=== PATIENT | female | born 1975 | race Two or more races ===

== ENCOUNTER 2017-01-01 18:31 | Emergency (ER) | payer BC ==
[~2017-01-01] VITALS: Ht 162.6 cm; Wt 63.5 kg
[2017-01-01 18:43] VITALS: BP 124/79
[2017-01-01] MEDS ORDERED: LORazepam Inj 2mg/ml 1ml IV ONE (19:00)
--- NOTE | 2017-01-01 19:04 | Emergency Room Report ---
History of Present Illness General Chief Complaint: General Complaint Source: Patient, Family Member Present Illness HPI Patient presents with left-sided weakness. It started approximately one hour prior to coming to the emergency department. She has any chest pain or palpitations or headache. She feels also tingling in her extremities. This began with tingling in her left knee. The patient has been in her care undergoing intravenous stress at this time with her kids. Return to commodes from [place] tarsitis down to decompression distress. The patient's had heart attacks in the past. She's also on Wellbutrin and Topamax with a history of psychiatric problems. She denies suicidality or depression she does feel quite anxious and crazy at this time. She also occasionally takes clonazepam. She states that the symptoms are waxing and waning. Sometimes she is able to move and at times not. She feels like her eyes are crossing. It is causing her to get greater stress. She states her last period ended last week. She denies any rash, vomiting nausea, diarrhea or dysuria. Apparently running out of Topamax and reduced dose - travelling. Allergies: Coded Allergies: [place] (Verified Allergy, Unknown, 01/01/17) Uncoded Allergies: SULFA (Allergy, Unknown, 01/01/17) Patient History Past Medical History: see triage record Social History: Denies: alcohol use, drug use Social History Narrative Reviewed Nursing Documentation: PMH: Agreed, PSxH: Agreed Nursing Documentation-PM Past Medical History: No History, Except For Hx Cardiac Problems: Yes - [place] Hx Hypertension: Yes History Of Psychiatric Problem: Yes - Anxiety, depresssion Review of Systems All Other Systems: negative except mentioned in HPI Physical Exam Vital Signs Date Time Temp Pulse Resp B/P Pulse Ox O2 Delivery O2 Flow Rate FiO2 01/01/17 18:18 98.4 84 16 124/79 99 Room Air Sp02 EP Interpretation: reviewed, normal General Appearance: well appearing, GCS 15, mild distress Head: normocephalic Eyes: bilateral eye EOMI, bilateral eye PERRL, bilateral eye normal inspection ENT: moist mucus membranes Neck: supple Respiratory: lungs clear, normal breath sounds Cardiovascular #1: regular rate, rhythm Cardiovascular #2: 2+ radial (R) Gastrointestinal: normal inspection, normal bowel sounds, non tender, no mass, non-distended Musculoskeletal: back normal, gait/station normal, normal range of motion Neurologic: alert, oriented x3, sensory intact, speech normal, motor weakness - variable, LE Psychiatric: anxious Skin: normal inspection, warm/dry Medical Decision Making Diagnostic Impression: Primary Impression: Transient left leg weakness Additional Impressions: Acute hyperventilation syndrome Medication reaction Qualified Codes: T88.7XXA - Unspecified adverse effect of drug or medicament, initial encounter Stress ER Course Patient presents with left-sided weakness and tingling associated with stress as waxing and waning. Differential includes acute hyperventilation, electrolyte abnormality, psychotic break, withdrawal, anxiety, dehydration amongst others. Evaluation with EKG, labs. CT not indicated as waxing and waning exam. Will treat with IV hydration and ativan. She will have cardiac monitoring. Labs unremarkable. EKG and CXR normal. After ativen and IV hydration, patient improved and ambulatory. Discussed findings. Patient stable for outpatient observation and treatment. Laboratory Tests Test 01/01/17 19:00 01/01/17 19:45 White Blood Count 5.5 K/UL (4.8-10.8) Red Blood Count 4.06 M/UL (4.20-5.40) L Hemoglobin 11.5 G/DL (12.0-16.0) L Hematocrit 35.7 % (37.0-47.0) L Mean Corpuscular Volume 88 FL (80-99) Mean Corpuscular Hemoglobin 28.2 PG (27.0-31.0) Mean Corpuscular Hemoglobin Concent 32.1 G/DL (32.0-36.0) Red Cell Distribution Width 13.0 % (11.6-14.8) Platelet Count 242 K/UL (150-450) Mean Platelet Volume 7.9 FL (6.5-10.1) Neutrophils (%) (Auto) 63.6 % (45.0-75.0) Lymphocytes (%) (Auto) 24.9 % (20.0-45.0) Monocytes (%) (Auto) 7.7 % (1.0-10.0) Eosinophils (%) (Auto) 1.8 % (0.0-3.0) Basophils (%) (Auto) 2.0 % (0.0-2.0) Sodium Level 136 mEQ/L (135-145) Potassium Level 4.0 mEQ/L (3.4-4.9) Chloride Level 99 mEQ/L (98-107) Carbon Dioxide Level 20 mEQ/L (20-30) Anion Gap 17 (5-15) H Blood Urea Nitrogen 17 mg/dL (7-23) Creatinine 0.9 mg/dL (0.5-0.9) Estimate Glomerular Filtration Rate > 60 mL/min (>60) Glucose Level 90 mg/dL (74-106) Calcium Level 8.7 mg/dL (8.6-10.2) Total Bilirubin 0.4 mg/dL (0.0-1.2) Aspartate Amino Transferase (AST) 17 U/L (5-40) Alanine Aminotransferase (ALT) 12 U/L (3-33) Alkaline Phosphatase 40 U/L (35-104) Total Creatine Kinase 96 U/L (26-140) Troponin I < 0.30 ng/mL (<=0.30) Total Protein 6.9 g/dL (6.6-8.7) Albumin 4.1 g/dL (3.5-5.2) Globulin 2.8 g/dL Albumin/Globulin Ratio 1.4 (1.0-2.7) Salicylates Level < 1 mg/dL (10-30) L Acetaminophen Level < 10 ug/mL (10-30) L Serum Alcohol < 10 mg/dL Urine Color Pale yellow Urine Appearance Clear Urine pH 6 (4.5-8.0) Urine Specific [place] 1.015 (1.005-1.035) Urine Protein Negative (NEGATIVE) Urine Glucose (UA) Negative (NEGATIVE) Urine Ketones Negative (NEGATIVE) Urine Occult Blood 1+ (NEGATIVE) H Urine Nitrite Negative (NEGATIVE) Urine Bilirubin Negative (NEGATIVE) Urine Urobilinogen Normal MG/DL (0.0-1.0) Urine Leukocyte Esterase Negative (NEGATIVE) Urine RBC 2-4 /HPF (0 - 2) H Urine WBC 0-2 /HPF (0 - 2) Urine Squamous Epithelial Cells Few /LPF (NONE/OCC) Urine Bacteria Few /HPF (NONE) Urine Mucus Few /LPF (NONE/OCC) H Urine HCG, Qualitative Negative Urine Opiates Screen Negative (NEGATIVE) Urine Barbiturates Screen Negative (NEGATIVE) Phencyclidine (PCP) Screen Negative (NEGATIVE) Urine Amphetamines Screen Negative (NEGATIVE) Urine Benzodiazepines Screen Negative (NEGATIVE) Urine Cocaine Screen Negative (NEGATIVE) Urine Marijuana (THC) Screen Negative (NEGATIVE) EKG Diagnostic Results Rate: normal Rhythm: NSR ST Segments: no acute changes Rhythm Strip Diag. Results EP Interpretation: yes Rhythm: NSR, no PVC's, no ectopy Chest X-Ray Diagnostic Results Chest X-Ray Ordered: Yes # of Views/Limited/Complete: 1 View EP Interpretation: Yes Interpretation: no consolidation, no effusion, no pneumothorax, no acute cardiopulmonary disease Indication: Other Impression: No acute disease Last Vital Signs Date Time Temp Pulse Resp B/P Pulse Ox O2 Delivery O2 Flow Rate FiO2 01/01/17 21:55 91 15 107/67 100 Room Air 01/01/17 21:55 98.0 Status: improved Disposition: HOME, SELF-CARE Condition: Improved Scripts Lorazepam* (ATIVAN*) 1 Mg Tablet 1 MG ORAL NEEDED Y for anxiety or dyspnea, #4 TAB Prov: Pelon Adorno M.D. 01/01/17 Topiramate (TOPAMAX) 200 Mg Tablet 200 MG ORAL EVERY 12 HOURS, #14 TAB Prov: Pelon Adorno M.D. 01/01/17 Pelon Adorno M.D. Jan 01, 2017 19:04
[2017-01-01] MEDS ORDERED: Tubing IV Cassette IV ONE (19:15)
[2017-01-01 19:21] LABS: EOSINOPHILS % (AUTO) 1.8 % (0.0-3.0); LYMPHOCYTES % (AUTO) 24.9 % (20.0-45.0); MEAN CORPUSCULAR HEMOGLOBIN 28.2 PG (27.0-31.0); MEAN CORPUSCULAR HGB CONC 32.1 G/DL (32.0-36.0); MEAN CORPUSCULAR VOLUME 88 FL (80-99); MEAN PLATELET VOLUME 7.9 FL (6.5-10.1); MONOCYTES % (AUTO) 7.7 % (1.0-10.0); NEUTROPHILS % (AUTO) 63.6 % (45.0-75.0); PLATELET COUNT 242 K/UL (150-450); RED BLOOD COUNT 4.06 M/UL (4.20-5.40); WHITE BLOOD COUNT 5.5 K/UL (4.8-10.8)
[2017-01-01 19:33] LABS: TROPONIN I < 0.30 ng/mL (<=0.30)
[2017-01-01 19:34] LABS: ACETAMINOPHEN < 10 ug/mL (10-30); ALANINE AMINOTRANSFERASE 12 U/L (3-33); ALBUMIN/GLOBULIN RATIO 1.4 (1.0-2.7); ALCOHOL < 10 mg/dL; ANION GAP 17 (5-15); ASPARTATE AMINO TRANSFERASE 17 U/L (5-40); CALCIUM 8.7 mg/dL (8.6-10.2); CARBON DIOXIDE 20 mEQ/L (20-30); CHLORIDE 99 mEQ/L (98-107); CREATININE 0.9 mg/dL (0.5-0.9); GLOMERULAR FILTRATION RATE > 60 mL/min (>60); HEMOLYSIS 42; SODIUM 136 mEQ/L (135-145); TOTAL PROTEIN 6.9 g/dL (6.6-8.7)
[2017-01-01 20:22] LABS: APPEARANCE,URINE CLEAR; KETONES,URINE NEGATIVE (NEGATIVE); LEUKOCYTE ESTERASE ,URINE NEGATIVE (NEGATIVE); NITRITE,URINE NEGATIVE (NEGATIVE); PH,URINE 6 (4.5-8.0); PROTEIN,URINE NEGATIVE (NEGATIVE); UROBILINOGEN,URINE NORMAL MG/DL (0.0-1.0)
[2017-01-01 20:24] VITALS: BP 122/68
[2017-01-01 20:52] LABS: BACTERIA,URINE FEW /HPF; MUCUS,URINE FEW /LPF (NONE/OCC); SQUAMOUS EPITHELIAL CELL,UR FEW /LPF (NONE/OCC); WBC,URINE 0-2 /HPF (0 - 2)
[2017-01-01] MEDS ORDERED: TOPAMAX200 MG ORAL (21:37)
[2017-01-01] MEDS ORDERED: ATIVAN1 MG ORAL (21:37)
[2017-01-01 21:55] VITALS: BP 107/67
[2017-01-02] MEDS ORDERED: WELLBUTRIN XL150 MG ORAL (00:49)
[2017-01-02] MEDS ORDERED: PLAVIX75 MG ORAL (00:49)
== END 2017-01-01 21:55 | disposition home or self-care (01) ==
LOC: EDBD 18:31 → EMR 19:00
DX: R53.1 Weakness (principal); F45.8 Other somatoform disorders; T88.7XXA Unspecified adverse effect of drug or medicament, initial encounter; F43.9 Reaction to severe stress, unspecified; R20.2 Paresthesia of skin; Z88.2 Allergy status to sulfonamides; Z91.018 Allergy to other foods; I25.2 Old myocardial infarction; I10 Essential (primary) hypertension; X58.XXXA Exposure to other specified factors, initial encounter; Y93.9 Activity, unspecified; Y92.9 Unspecified place or not applicable
CPT/HCPCS: 36415; 80053; 80300; 81003; 81025; 82550; 84484; 85025; 93005; 96374; 96375; 99284; G0480; 80329